=== PATIENT | female | born 1975 | race Two or more races ===

== ENCOUNTER 2018-10-11 11:45 | Emergency (ER) | payer MEDICAID ==
--- NOTE | 2018-10-11 12:34 | EDPHY ---
H & P Stated Complaint: c/o 2 days of sorethroat/fever/R ear pain Time Seen by Provider: 10/11/18 12:34 - Medical/Surgical History Hx Asthma: No Hx Chronic Respiratory Disease: No Hx Diabetes: No Hx Cardiac Disease: No Hx Renal Disease: No Hx Cirrhosis: No Hx Alcoholism: No Hx HIV/AIDS: No Hx Splenectomy or Spleen Trauma: No Other PMH: c section - Social History Smoking Status: Never smoked Constitutional: Initial Vital Signs Temperature (C) 36.9 C 10/11/18 12:20 Heart Rate 72 10/11/18 12:20 Respiratory Rate 16 10/11/18 12:20 Blood Pressure 145/95 H 10/11/18 12:20 O2 Sat (%) 98 10/11/18 12:20 O2 Delivery Mode Room Air Allergies/Adverse Reactions: No Known Allergies Allergy (Unverified 10/11/18 12:32) Home Medications: Medication Instructions Recorded Azithromycin [Zithromax] 250 mg PO DAILY #6 tab 10/11/18 HYDROcodone/HOMATROPINE HYCODA 1 tsp PO Q4-6PRN PRN #120 ml 10/11/18 [Hycodan Syrup (RX)] Medical Decision Making ED Course/Re-evaluation: CHIEF COMPLAINT: Earache, sore throat, weakness HISTORY OF PRESENT ILLNESS: The patient is a 43 y/o female arriving with her family member complaining of sore throat, right ear pain, and generalized weakness for the last two days. She has an associated intermittent cough. No abdominal pain, nausea, vomiting, diarrhea, fever, urinary symptoms. She is generally healthy. REVIEW OF SYSTEMS: A comprehensive 10 system review of systems is otherwise negative aside from elements mentioned in the history of present illness and medical decision making. PHYSICAL EXAM: HR, BP, O2 Sat, RR. Temp noted General Appearance: Alert, well hydrated, appropriate, and non-toxic appearing. Head: Atraumatic without scalp tenderness or obvious injury Eyes: Pupils equal, round, reactive to light and accommodation, EOMI, no trauma , no injection. Ears: Right TM erythematous. No perforation, normal landmarks Nose: Atraumatic, no rhinorrhea, clear. Throat: Mild erythema, no exudates, no lesions, normal tonsils, mucus membranes moist. Neck: Supple, nontender, no lymphadenopathy. Respiratory: No retractions, no distress, no wheezes, and no accessory muscle use. Lungs are clear to auscultation bilaterally. Cardiovascular: Regular rate and rhythm, no murmurs, rubs, or gallops. Good capillary refill all extremities. Gastrointestinal: Abdomen is soft, nontender, non-distended, no masses, no rebound, no guarding, no peritoneal signs. Musculoskeletal: Normal active ROM of all extremities, atraumatic. Neurological: Alert, appropriate, and interactive. The patient has non-focal cranial nerves, motor, sensory, and cerebellar exam. Skin: No rashes, good turgor, no nodules on palpation. Past medical history: Denies Past surgical history: Left knee surgery 6 years ago, Family history: Noncontributory Social history: Family member at bedside. DIFFERENTIAL DIAGNOSIS: The differential diagnosis for the patient's symptoms included but was not limited to otitis media, pharyngitis, pneumonia, urinary tract infection, viral syndrome, meningitis, and sepsis. MEDICAL DECISION MAKING: This is a healthy 43 y/o female with a two-day history of sore throat, right- sided earache, and weakness. She has an erythematous right TM and mild pharyngeal erythema on exam. She is afebrile. Abdomen is benign and lung sounds are clear. Plan to treat otitis media with azithromycin and Hycodan elixir in addition to OTC treatments. Recommend PCP follow up as needed. Return precautions discussed. She is comfortable with this plan. - Data Points Laboratory Results: 10/11/18 10/11/18 Unknown 12:30 Group A Strep Screen NEGATIVE (NEGATIVE) Group A Strep DNA Pending Departure - Departure Disposition: Home, Routine, Self-Care Clinical Impression: Otitis media Qualifiers: Otitis media type: suppurative Chronicity: acute Laterality: right Recurrence: not specified as recurrent Spontaneous tympanic membrane rupture: without spontaneous rupture Qualified Code(s): H66.001 - Acute suppurative otitis media without spontaneous rupture of ear drum, right ear Condition: Good Instructions: Azithromycin (By mouth), Ear Infection (ED) Additional Instructions: 1. Take azithromycin (antibiotic) as prescribed. Be sure to complete the entire prescription even if your symptoms have resolved. 2. Use Tylenol and ibuprofen as directed for pain and fever over the next few days. 3. Use Hycodan Elixir as prescribed for sore throat as needed. This is a narcotic and can make you sleepy. Do not use prior to driving or using machinery. 4. Follow up with your primary care provider for unimproved symptoms over the next few days. Adult Pain & Fever Control: We recommend Acetaminophen (Tylenol) and Ibuprofen (Motrin,Advil) for pain and fever control. When fever is high or pain severe, both drugs can be used at the same time, but at different intervals. Please note the time differences. Your dose is: Acetaminophen 650mg every 4 to 6 hours Ibuprofen 600mg every 8 hours with food Note: do not take Acetaminophen with Hydrocodone (Vicodin, Lortab) or Oxycodone (Percocet). These medications also contain Acetaminophen. No more than 3000mg of Acetaminophen should be taken in 24 hours (for an adult). Referrals: [facility],. [Clinic] - As per Instructions Prescriptions: Azithromycin [Zithromax] 250 mg PO DAILY #6 tab HYDROcodone/HOMATROPINE HYCODA [Hycodan Syrup (RX)] 1 tsp PO Q4-6PRN PRN #120 ml PRN Reason: Cough, Moderate Print Language: Bulgarian Report Scribed for: Donato Garvey Report Scribed by: Andria Mayes Date of Report: 10/11/18 Time of Report: 12:56
[2018-10-11 13:16] VITALS: BP 133/74
== END 2018-10-11 13:15 | disposition home or self-care (01) ==
DX: H66.001 Acute suppurative otitis media without spontaneous rupture of ear drum, right ear (principal); J02.9 Acute pharyngitis, unspecified; R53.1 Weakness